=== PATIENT | male | born 1965 | race Caucasian/White ===

== ENCOUNTER 2021-04-19 15:42 | Emergency (ER) | payer MEDICARE, MEDICAID ==
[2021-04-19] MEDS ORDERED: Sodium Chloride 0.9% 10 ML Syringe FLUSH PRN (16:00)
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
--- NOTE | 2021-04-19 16:17 | CT ---
Head CT Technique: Multiple axial sections through the brain were obtained. Intravenous contrast was not utilized. Reconstructed coronal and sagittal images were obtained. Findings: Old infarcts are noted within the right frontal and right temporal region. Old infarcts are also noted within the posterior left parietal and occipital regions. Ventricles are moderately prominent. Mild prominence of the sulci over the convexities is seen. Atherosclerotic calcification is seen within the vertebral vessels and carotid siphon. No other abnormal parenchymal densities are seen. No evidence of intracranial hemorrhage is seen. No midline shift or mass-effect is seen. Bone window settings were reviewed. Previous craniotomy is noted on the left side. Mild mucosal thickening is seen within the left ethmoid and frontal sinuses. No acute mastoid sinus findings are seen. Impression: 1. Multiple old appearing infarcts are noted. Prior surgery is noted within the left calvarium. 2. Other senescent change as noted above. 3. No acute intracranial abnormality is appreciated. 4. Slight mucosal thickening within the paranasal sinuses which is most likely chronic. Note: If patient's symptoms remains persistent, MRI study could then be considered. Diagnostic code #2
[2021-04-19] MEDS ORDERED: cloZAPine 100 MG Tab PO SCH ×2 (18:44→21:00)
[2021-04-19 20:13] VITALS: BP 146/104; PULSE 99
== END 2021-04-19 19:20 | disposition home or self-care (01) ==
LOC: JD.ED 15:42
DX: R41.0 Disorientation, unspecified (principal); I10 Essential (primary) hypertension; I25.2 Old myocardial infarction; Z79.899 Other long term (current) drug therapy; Z20.822 Contact with and (suspected) exposure to COVID-19
CPT/HCPCS: 36415; 70450; 80053; 82947; 84484; 85025; 85610; 93005; 99285; U0002

== ENCOUNTER 2021-07-17 19:55 | Emergency (ER) | payer MEDICARE, MEDICAID ==
[2021-07-17 20:34] VITALS: BP 125/95; PULSE 107
--- NOTE | 2021-07-17 21:05 | CT ---
Head CT Technique: Multiple axial sections through the brain were obtained. Intravenous contrast was not utilized. Reconstructed coronal and sagittal images were obtained. Comparison: Prior head CT study of 04/19/21. Findings: Diffuse low density is seen within the left temporal region extending into the parietal region and into the occipital region. There is significant mass-effect with effacement of a large portion of the lateral left ventricle. There is midline shift by approximately 4.6 mm. Old area of encephalomalacia is seen within the right temporal and right frontal region which are stable. There is a small area of hemorrhages being seen within the left parietal area involving the cortex. Largest hemorrhage measures about 1.0 cm. Bone window settings were obtained which show prior left-sided craniotomy. Mild mucosal thickening is seen within the inferior left mastoid sinus likely incidental. Nothing acute is seen within the visualized paranasal sinuses. Impression: 1. Diffuse low density within the left temporal region and left parietal region as well as left occipital lobe. This causes significant mass-effect upon the lateral left ventricle and approximately 4.6 mm of midline shift. This finding is most likely due to a prominent infarct. 2. Minimal cortical hemorrhages are seen within the left parietal region with largest measuring 1.0 cm. 3. Old area of encephalomalacia within the right temporal lobe. Diagnostic code #3
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
== END 2021-07-18 00:25 | disposition home or self-care (01) ==
LOC: JD.ED 19:55
DX: R41.0 Disorientation, unspecified (principal); I25.2 Old myocardial infarction; I10 Essential (primary) hypertension; Z79.82 Long term (current) use of aspirin; Z79.899 Other long term (current) drug therapy; Z20.822 Contact with and (suspected) exposure to COVID-19
CPT/HCPCS: 36415; 70450; 80048; 85025; 85610; 85730; 93005; 99285; U0002